=== PATIENT | female | born 2000 | race Caucasian/White ===

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

== ENCOUNTER 2024-08-31 15:36 | Emergency (ER) | payer OTHER, SELFPAY ==
[2024-08-31 15:37] VITALS: BP 138/85; PULSE 102; RESP 16; TEMP 36.6; O2SAT 97; BMI 25.7
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
[2024-08-31 19:31] VITALS: BP 122/81; PULSE 85; RESP 14; O2SAT 98
[2024-08-31 19:50] LABS: Appearance Urine UA CLEAR; Bilirubin Urine UA NEGATIVE (NEGATIVE); Color Urine UA YELLOW; Glucose Urine UA NEGATIVE (Negative); Ketones Urine UA NEGATIVE (NEGATIVE); Leukocyte Esterase Urine UA TRACE (NEGATIVE); Nitrite Urine UA NEGATIVE (Negative); Occult Blood Urine UA NEGATIVE (Negative); Protein Urine UA NEGATIVE (Negative); Specific Gravity Urine UA 1.015 (1.000-1.035); Urobilinogen Urine UA 0.2 E.U./dL (0.2)
[2024-08-31 20:02] LABS: Bacteria Urine Few (2-10); Culture Indicated Urine Cult Not Indicated; RBC Urine 0-1/HPF (0-5/HPF); Squamous Epithelial Cell Urine 0-1 /HPF (0-5/HPF); Urine Volume 10mL (spun); WBC Urine 0-1/HPF (0-5/HPF)
== END 2024-08-31 19:33 | disposition home or self-care (01) ==
PROVIDERS: Emergency Provider Student in an Organized Health Care Education/Training Program
DX: R51.9 Headache, unspecified (principal); V09.00XA Pedestrian injured in nontraffic accident involving unspecified motor vehicles, initial encounter
CPT/HCPCS: 81001; 99281; 99282